=== PATIENT | male | born 1960 | race Caucasian/White ===

== ENCOUNTER 2021-01-25 06:42 | Emergency (ER) | payer BC, OTHER ==
[2021-01-25 08:11] LABS: #Basophils 0.1 10x3/uL (0.0-0.2); #Neutrophils 3.8 10x3/uL (1.5-8.4); %Basophils 0.9 % (0.0-2.0); %Eosinophils 0.6 % (0.0-6.0); %Lymphocytes 26.2 % (18.0-47.0); %Monocytes 15.4 % (0.0-10.0); %Neutrophils 56.5 % (40.0-75.0); Hemoglobin 16.3 g/dL (13.5-17.5); Mean Corpuscular HGB CONC 35.4 g/dL (32.0-36.0); Mean Corpuscular Hemoglobin 33.2 pg (27.0-33.0); Mean Corpuscular Volume 93.9 fl (81.2-95.1); Mean Platelet Volume 10.7 fl (7.4-10.4); Platelet Count 184 10x3/uL (150-450); RBC Distribution Width 12.7 % (11.5-14.5); Red Blood Cell (RBC) Count 4.91 10x6/uL (4.32-5.72); White Blood Cell (WBC) Count 6.8 10x3/uL (3.5-10.5)
[2021-01-25] MEDS ORDERED: Oxymetazoline HCl 0.05% ( 15 ML ) ONE (08:37)
== END 2021-01-25 09:03 | disposition home or self-care (01) ==
LOC: CSHERS 06:42
DX: R04.0 Epistaxis (principal); E78.5 Hyperlipidemia, unspecified; E78.00 Pure hypercholesterolemia, unspecified; I48.91 Unspecified atrial fibrillation; I10 Essential (primary) hypertension; Z79.01 Long term (current) use of anticoagulants
CPT/HCPCS: 85025; 93005; 93010; 99283

== ENCOUNTER 2021-01-26 10:40 | Observation (INO) | payer BC, OTHER ==
[2021-01-26] MEDS ORDERED: diphenhydrAMINE 50 MG/ML VIAL ONE (11:05)
[2021-01-26] MEDS ORDERED: Dexamethasone 10 MG/ML VIAL ONE (11:05)
[2021-01-26 11:16] LABS: #Monocytes 0.7 10x3/uL (0.0-1.1); #Neutrophils 3.4 10x3/uL (1.5-8.4); %Basophils 0.7 % (0.0-2.0); %Eosinophils 0.5 % (0.0-6.0); %Lymphocytes 25.8 % (18.0-47.0); %Monocytes 11.7 % (0.0-10.0); %Neutrophils 60.9 % (40.0-75.0); Hemoglobin 16.1 g/dL (13.5-17.5); Mean Corpuscular Hemoglobin 32.9 pg (27.0-33.0); Mean Corpuscular Volume 91.2 fl (81.2-95.1); Mean Platelet Volume 10.3 fl (7.4-10.4); Platelet Count 160 10x3/uL (150-450); RBC Distribution Width 12.7 % (11.5-14.5); White Blood Cell (WBC) Count 5.6 10x3/uL (3.5-10.5)
[2021-01-26 11:27] LABS: ALT (SGPT) 26 U/L (8-55); AST (SGOT) 25 U/L (5-34); Albumin 3.9 g/dL (3.4-4.8); Alkaline Phosphatase 65 U/L (40-110); Anion Gap 16 mmol/L (10-20); BUN (Urea Nitrogen) 15 mg/dL (8.4-25.7); Bilirubin, Total 1.2 mg/dL (0.2-1.2); Calc. Creatinine Clearance 0 mL/min (70-130); Calcium 9.6 mg/dL (7.8-10.44); Carbon Dioxide 14 mmol/L (23-31); Chloride 108 mmol/L (98-107); Globulin 3.5 g/dL (2.4-3.5); Glucose 200 mg/dL (80-115); Lipase 72 U/L (8-78); PTT 25.2 sec (22.0-33.0); Potassium 3.8 mmol/L (3.5-5.1); Protein, Total 7.4 g/dL (5.8-8.1); Prothrombin Time 11.4 sec (9.5-12.1); Sodium 134 mmol/L (136-145)
[2021-01-26] MEDS ORDERED: Multivitamins, Adult 10 ML, Thiamine HCl 100 MG, Folic Acid 1 MG in Dextrose 5 %-0.45 %... IV SCH (11:45)
[2021-01-26] MEDS ORDERED: Famotidine/PF 20 mg/2ml Vial ONE (11:56)
[2021-01-26] MEDS ORDERED: Ondansetron PF 4 MG/2 ML Vial IVP PRN (12:49)
[2021-01-26] MEDS ORDERED: Senokot S 8.6-50 MG TAB PO PRN (12:49)
[2021-01-26] MEDS ORDERED: Acetaminophen 650 MG Suppository PR PRN (12:49)
[2021-01-26] MEDS ORDERED: Acetaminophen 325 MG TAB PO PRN (12:49)
[2021-01-26] MEDS ORDERED: diphenhydrAMINE 50 MG/ML VIAL IVP PRN (12:51)
[2021-01-26 13:24] LABS: SARS-CoV-2 NAA Rapid Test Not Detected (NotDetected)
[2021-01-26] MEDS ORDERED: Dextrose 50% Abboject 50 ML SYRINGE SLOW IVP PRN (14:18)
[2021-01-26] MEDS ORDERED: Dextrose 5% in Water 1,000 ML IV PRN (14:18)
[2021-01-26] MEDS ORDERED: Ondansetron ODT 4 MG TAB PO PRN (17:26)
[2021-01-26] MEDS ORDERED: D5 1/2 NS w/20 mEq KCL 1,000 ML IV SCH (17:30)
[2021-01-26 17:32] VITALS: BMI 25.7
[2021-01-26] MEDS ORDERED: methylPREDNISolone Sod Succ 40 MG VIAL IVP SCH (18:00)
[2021-01-26] MEDS: HumaLOG 300 UNITS/3 ML VIAL SC PRN (18:05)
[2021-01-26] MEDS: methylPREDNISolone Sod Succ 40 MG VIAL IVP SCH (20:45)
[2021-01-26] MEDS: Famotidine/PF 20 mg/2ml Vial SLOW IVP SCH (20:45)
[2021-01-27] MEDS: HumaLOG 300 UNITS/3 ML VIAL SC PRN ×4 (00:21→16:05)
[2021-01-27 05:00] LABS: #Monocytes 0.3 10x3/uL (0.0-1.1); #Neutrophils 3.7 10x3/uL (1.5-8.4); %Lymphocytes 15.7 % (18.0-47.0); %Monocytes 5.9 % (0.0-10.0); %Neutrophils 77.8 % (40.0-75.0); Hemoglobin 14.2 g/dL (13.5-17.5); Mean Corpuscular HGB CONC 35.5 g/dL (32.0-36.0); Mean Corpuscular Hemoglobin 32.6 pg (27.0-33.0); Mean Platelet Volume 10.4 fl (7.4-10.4); Platelet Count 164 10x3/uL (150-450); RBC Distribution Width 12.4 % (11.5-14.5); Red Blood Cell (RBC) Count 4.35 10x6/uL (4.32-5.72); White Blood Cell (WBC) Count 4.8 10x3/uL (3.5-10.5)
[2021-01-27 05:12] LABS: ALT (SGPT) 21 U/L (8-55); AST (SGOT) 17 U/L (5-34); Albumin 3.6 g/dL (3.4-4.8); Alkaline Phosphatase 59 U/L (40-110); Anion Gap 13 mmol/L (10-20); BUN (Urea Nitrogen) 10 mg/dL (8.4-25.7); Bilirubin, Total 0.7 mg/dL (0.2-1.2); Calc. Creatinine Clearance 110 mL/min (70-130); Calcium 8.7 mg/dL (7.8-10.44); Carbon Dioxide 17 mmol/L (23-31); Chloride 108 mmol/L (98-107); Globulin 3.6 g/dL (2.4-3.5); Glucose 164 mg/dL (80-115); Potassium 3.4 mmol/L (3.5-5.1); Protein, Total 7.2 g/dL (5.8-8.1); Sodium 135 mmol/L (136-145)
[2021-01-27 08:05] VITALS: BP 155/108; TEMP 98
[2021-01-27] MEDS: Famotidine/PF 20 mg/2ml Vial SLOW IVP SCH (08:24)
[2021-01-27] MEDS: methylPREDNISolone Sod Succ 40 MG VIAL IVP SCH ×2 (08:24→13:56)
[2021-01-27] MEDS ORDERED: Labetalol HCl 100 MG/20 ML VIAL SLOW IVP PRN (08:30)
[2021-01-27] MEDS ORDERED: Potassium Chloride 20 MEQ TAB PO SCH (08:30)
[2021-01-27] MEDS ORDERED: Amlodipine 5 MG TAB PO SCH (09:00)
[2021-01-27] MEDS ORDERED: Metoprolol Tartrate 50 MG TAB PO SCH (09:00)
[2021-01-27 11:27] LABS: Hemoglobin A1c 5.7 % (4.0-6.0)
[2021-01-27] MEDS ORDERED: Labetalol HCl 100 MG/20 ML VIAL SLOW IVP SCH (15:00)
== END 2021-01-27 17:15 | disposition home or self-care (01) ==
LOC: CSHERS 10:40 → SUATTDRO 10:40 → INTOOBSV 16:25 → CSHICU 16:25
PROVIDERS: ADMIT Internal Medicine; ATTEND Internal Medicine
DX: T78.3XXA Angioneurotic edema, initial encounter (principal); I48.0 Paroxysmal atrial fibrillation; R04.0 Epistaxis; I10 Essential (primary) hypertension; R73.9 Hyperglycemia, unspecified; E78.5 Hyperlipidemia, unspecified; H91.90 Unspecified hearing loss, unspecified ear; F10.10 Alcohol abuse, uncomplicated; E78.00 Pure hypercholesterolemia, unspecified; Z79.01 Long term (current) use of anticoagulants; Z79.899 Other long term (current) drug therapy; Z20.822 Contact with and (suspected) exposure to COVID-19
CPT/HCPCS: 36416; 36430; 71045; 80053; 83036; 83690; 83880; 84484; 85025; 85610; 85730; 86850; 86900; 86901; 96365; 96374; 96375; 96376; G0378; J1100; J1200; J1815; J2920; J3411; J3480; J7042; P9059; S0028; U0002

== ENCOUNTER 2022-10-31 03:58 | Emergency (ER) | payer BC, OTHER | END 2022-10-31 07:30 | disposition home or self-care (01) | LOC: CSHERS 03:58 | DX: R04.0 Epistaxis (principal); I48.91 Unspecified atrial fibrillation; E78.00 Pure hypercholesterolemia, unspecified; I10 Essential (primary) hypertension; Z79.899 Other long term (current) drug therapy | CPT/HCPCS: 30901 ==

== ENCOUNTER 2023-04-15 18:34 | Inpatient (IN) | payer BC, OTHER ==
[~2023-04-15 18:34] MED LIST: Magnevist 469MG/ML 20 ML VIAL ONE
[2023-04-15] MEDS ORDERED: Calcium Carbonate 500 MG ChewTAB PO PRN (19:25)
[2023-04-15] MEDS ORDERED: Ondansetron PF 4 MG/2 ML Vial IVP PRN (19:25)
[2023-04-15] MEDS ORDERED: Senokot S 8.6-50 MG TAB PO PRN (19:25)
[2023-04-15] MEDS ORDERED: Guaifenesin DM 100-10/5 ML UDCUP PO PRN (19:25)
[2023-04-15] MEDS ORDERED: Acetaminophen 325 MG TAB PO PRN (19:25)
[2023-04-15 20:09] VITALS: BMI 27.3
[2023-04-15] MEDS ORDERED: Sodium Chloride 0.9% 1,000 ML IV SCH (20:45)
[2023-04-15] MEDS: HYDROcodone/Acetaminophen 5/325 mg Tablet PO PRN (22:12)
[2023-04-15] MEDS: Metoprolol Tartrate 50 MG TAB PO SCH (22:14)
[2023-04-15] MEDS: Cefepime 1 GM in Sodium Chloride 0.9% 100 ML IVPB SCH (23:17)
[2023-04-16 04:51] LABS: #Eosinphils 0.2 10x3/uL (0.0-0.5); #Monocytes 0.7 10x3/uL (0.0-1.1); #Neutrophils 3.8 10x3/uL (1.5-8.4); %Basophils 0.7 % (0.0-2.0); %Eosinophils 2.6 % (0.0-6.0); %Lymphocytes 16.7 % (18.0-47.0); %Monocytes 12.9 % (0.0-10.0); %Neutrophils 66.7 % (40.0-75.0); Mean Corpuscular HGB CONC 35.2 g/dL (32.0-36.0); Mean Corpuscular Hemoglobin 32.9 pg (27.0-33.0); Mean Corpuscular Volume 93.4 fl (81.2-95.1); Mean Platelet Volume 9.5 fl (7.4-10.4); Platelet Count 236 10x3/uL (150-450); RBC Distribution Width 12.7 % (11.5-14.5); Red Blood Cell (RBC) Count 3.65 10x6/uL (4.32-5.72); White Blood Cell (WBC) Count 5.7 10x3/uL (3.5-10.5)
[2023-04-16] MEDS: HYDROcodone/Acetaminophen 5/325 mg Tablet PO PRN ×4 (04:56→22:07)
[2023-04-16] MEDS: Vancomycin 1.5 GRAM/300 ML BAG 1.5 GM in Premix Bag 1 BAG IVPB SCH ×2 (04:59→17:35)
[2023-04-16 05:04] LABS: Anion Gap 13 mmol/L (10-20); BUN (Urea Nitrogen) 6 mg/dL (8.4-25.7); Calc. Creatinine Clearance 142 mL/min (70-130); Calcium 8.6 mg/dL (7.8-10.44); Carbon Dioxide 19 mmol/L (23-31); Chloride 104 mmol/L (98-107); Estimated GFR 105; Glucose 102 mg/dL (80-115); Potassium 3.4 mmol/L (3.5-5.1); Sodium 133 mmol/L (136-145)
[2023-04-16] MEDS: Cefepime 1 GM in Sodium Chloride 0.9% 100 ML IVPB SCH (08:50)
[2023-04-16] MEDS: Aspirin 81 mg Enteric Coated Tablet PO SCH (08:51)
[2023-04-16] MEDS: Metoprolol Tartrate 50 MG TAB PO SCH ×2 (08:51→21:53)
[2023-04-16] MEDS: Potassium Chloride 20 MEQ TAB PO SCH (08:51)
[2023-04-16] MEDS: dilTIAZem CD 180 MG CAP PO SCH (08:51)
[2023-04-16] MEDS: Fenofibrate Nanocrystallized 145 MG TAB PO SCH (08:52)
[2023-04-16] MEDS ORDERED: Thiamine 100 MG TAB PO SCH (09:00)
[2023-04-16] MEDS ORDERED: Folic Acid 1 MG TAB PO SCH (09:00)
[2023-04-16] MEDS ORDERED: Multivitamin W/ Minerals 1 TAB PO SCH (09:00)
[2023-04-16] MEDS ORDERED: Potassium Chloride 20 MEQ TAB PO SCH (09:30)
[2023-04-16] MEDS ORDERED: Piperacillin/Tazobactam 3.375 GM in Sodium Chloride 0.9% 100 ML IVPB SCH (10:00)
[2023-04-16 12:23] LABS: Hemoglobin A1c 5.2 % (4.0-6.0)
[2023-04-16] MEDS: Piperacillin/Tazobactam 3.375 GM in Sodium Chloride 0.9% 100 ML IVPB SCH ×2 (14:09→21:54)
[2023-04-17] MEDS ORDERED: Lorazepam 1 MG TAB PO PRN
[2023-04-17] MEDS ORDERED: Ondansetron ODT 4 MG TAB PO PRN (02:45)
[2023-04-17] MEDS ORDERED: Electrolyte Replacement Protocol FS PRN (02:45)
[2023-04-17] MEDS ORDERED: Lorazepam 2 MG/ML VIAL IM PRN (02:45)
[2023-04-17] MEDS ORDERED: Lorazepam 1 MG TAB PO SCH (02:45)
[2023-04-17] MEDS: HYDROcodone/Acetaminophen 5/325 mg Tablet PO PRN (03:19)
[2023-04-17] MEDS: Metoprolol Tartrate 50 MG TAB PO SCH ×2 (05:34→22:21)
[2023-04-17] MEDS: Lorazepam 1 MG TAB PO SCH ×4 (05:35→22:22)
[2023-04-17] MEDS: dilTIAZem CD 180 MG CAP PO SCH (05:35)
[2023-04-17] MEDS: Piperacillin/Tazobactam 3.375 GM in Sodium Chloride 0.9% 100 ML IVPB SCH ×5 (05:37→22:21)
[2023-04-17] MEDS: Vancomycin 1.5 GRAM/300 ML BAG 1.5 GM in Premix Bag 1 BAG IVPB SCH ×2 (05:39→17:25)
[2023-04-17 05:54] LABS: Vancomycin, Trough 11.9 ug/mL
[2023-04-17] MEDS ORDERED: Neomycin-Polymyxin 1 ML AMP ONE (07:37)
[2023-04-17] MEDS ORDERED: Bupivacaine 0.25% HCL 30 ML VIAL ONE (07:37)
[2023-04-17] MEDS ORDERED: fentaNYL 50 mcg/mL 1 mL Vial ONE (07:46)
[2023-04-17] MEDS ORDERED: PROPOFOL 40 ML ONE (07:46)
[2023-04-17] MEDS ORDERED: Potassium Chloride 20 MEQ TAB PO SCH (08:00)
[2023-04-17] MEDS ORDERED: Dexmedetomidine 200 MCG/2 ML VIAL ONE (08:01)
[2023-04-17] MEDS ORDERED: Bupivacaine PF 0.5% 30 ML VIAL ONE (08:08)
[2023-04-17] MEDS ORDERED: Ondansetron PF 4 MG/2 ML Vial ONE (08:38)
[2023-04-17] MEDS: Losartan Potassium 50 MG TAB PO SCH (09:32)
[2023-04-17] MEDS: Folic Acid 1 MG TAB PO SCH (09:32)
[2023-04-17] MEDS: Aspirin 81 mg Enteric Coated Tablet PO SCH (09:32)
[2023-04-17] MEDS: Thiamine HCl 200 MG/2 ML VIAL SLOW IVP SCH (09:32)
[2023-04-17] MEDS: Multivit, Therapeutic 1 TAB PO SCH (09:32)
[2023-04-17] MEDS: Fenofibrate Nanocrystallized 145 MG TAB PO SCH (09:36)
[2023-04-18] MEDS: HYDROcodone/Acetaminophen 5/325 mg Tablet PO PRN ×2 (02:31→08:18)
[2023-04-18] MEDS ORDERED: Lorazepam 1 MG TAB PO PRN (02:45)
[2023-04-18 04:31] LABS: Anion Gap 14 mmol/L (10-20); BUN (Urea Nitrogen) 6 mg/dL (8.4-25.7); Calc. Creatinine Clearance 130 mL/min (70-130); Calcium 9.2 mg/dL (7.8-10.44); Carbon Dioxide 19 mmol/L (23-31); Chloride 105 mmol/L (98-107); Estimated GFR 102; Glucose 113 mg/dL (80-115); Potassium 4.1 mmol/L (3.5-5.1); Sodium 134 mmol/L (136-145)
[2023-04-18] MEDS: Lorazepam 1 MG TAB PO SCH ×4 (04:39→23:09)
[2023-04-18] MEDS: Vancomycin 1.5 GRAM/300 ML BAG 1.5 GM in Premix Bag 1 BAG IVPB SCH ×2 (04:39→17:50)
[2023-04-18 04:41] LABS: #Basophils 0.1 10x3/uL (0.0-0.2); #Eosinphils 0.2 10x3/uL (0.0-0.5); #Monocytes 0.6 10x3/uL (0.0-1.1); #Neutrophils 3.9 10x3/uL (1.5-8.4); %Basophils 0.8 % (0.0-2.0); %Eosinophils 2.9 % (0.0-6.0); %Monocytes 10.3 % (0.0-10.0); %Neutrophils 66.5 % (40.0-75.0); Hemoglobin 12.6 g/dL (13.5-17.5); Mean Corpuscular HGB CONC 35.1 g/dL (32.0-36.0); Mean Corpuscular Hemoglobin 33.2 pg (27.0-33.0); Mean Corpuscular Volume 94.5 fl (81.2-95.1); Mean Platelet Volume 9.7 fl (7.4-10.4); Platelet Count 287 10x3/uL (150-450); RBC Distribution Width 12.4 % (11.5-14.5); White Blood Cell (WBC) Count 5.9 10x3/uL (3.5-10.5)
[2023-04-18] MEDS: Piperacillin/Tazobactam 3.375 GM in Sodium Chloride 0.9% 100 ML IVPB SCH ×3 (06:05→21:33)
[2023-04-18] MEDS: Multivit, Therapeutic 1 TAB PO SCH (08:18)
[2023-04-18] MEDS: dilTIAZem CD 180 MG CAP PO SCH (08:18)
[2023-04-18] MEDS: Thiamine HCl 200 MG/2 ML VIAL SLOW IVP SCH (08:18)
[2023-04-18] MEDS: Metoprolol Tartrate 50 MG TAB PO SCH ×2 (08:18→21:33)
[2023-04-18] MEDS: Aspirin 81 mg Enteric Coated Tablet PO SCH (08:19)
[2023-04-18] MEDS: Folic Acid 1 MG TAB PO SCH (08:19)
[2023-04-18] MEDS: Losartan Potassium 50 MG TAB PO SCH ×2 (08:19→21:33)
[2023-04-18] MEDS: Fenofibrate Nanocrystallized 145 MG TAB PO SCH (08:20)
[2023-04-19] MEDS: HYDROcodone/Acetaminophen 5/325 mg Tablet PO PRN ×2 (01:30→08:12)
[2023-04-19] MEDS ORDERED: Lorazepam 1 MG TAB PO PRN (02:45)
[2023-04-19] MEDS: Vancomycin 1.5 GRAM/300 ML BAG 1.5 GM in Premix Bag 1 BAG IVPB SCH (05:13)
[2023-04-19] MEDS: Lorazepam 0.5 MG TAB PO SCH ×4 (05:13→22:19)
[2023-04-19 05:18] LABS: #Basophils 0.1 10x3/uL (0.0-0.2); #Eosinphils 0.2 10x3/uL (0.0-0.5); #Monocytes 0.6 10x3/uL (0.0-1.1); #Neutrophils 2.5 10x3/uL (1.5-8.4); %Basophils 1.5 % (0.0-2.0); %Eosinophils 4.3 % (0.0-6.0); %Lymphocytes 27.2 % (18.0-47.0); %Monocytes 12.7 % (0.0-10.0); %Neutrophils 53.4 % (40.0-75.0); Mean Corpuscular HGB CONC 34.2 g/dL (32.0-36.0); Mean Corpuscular Volume 96.4 fl (81.2-95.1); Mean Platelet Volume 9.5 fl (7.4-10.4); Platelet Count 291 10x3/uL (150-450); RBC Distribution Width 12.6 % (11.5-14.5); Red Blood Cell (RBC) Count 3.94 10x6/uL (4.32-5.72); White Blood Cell (WBC) Count 4.6 10x3/uL (3.5-10.5)
[2023-04-19 05:24] LABS: Anion Gap 14 mmol/L (10-20); BUN (Urea Nitrogen) 8 mg/dL (8.4-25.7); Calc. Creatinine Clearance 116 mL/min (70-130); Calcium 9.5 mg/dL (7.8-10.44); Carbon Dioxide 22 mmol/L (23-31); Chloride 105 mmol/L (98-107); Estimated GFR 98; Glucose 111 mg/dL (80-115); Potassium 4.5 mmol/L (3.5-5.1); Sodium 136 mmol/L (136-145)
[2023-04-19 05:38] LABS: Vancomycin, Trough 17.4 ug/mL
[2023-04-19] MEDS: Piperacillin/Tazobactam 3.375 GM in Sodium Chloride 0.9% 100 ML IVPB SCH (05:44)
[2023-04-19] MEDS: Metoprolol Tartrate 50 MG TAB PO SCH ×2 (08:12→22:18)
[2023-04-19] MEDS: Losartan Potassium 50 MG TAB PO SCH ×2 (08:12→22:18)
[2023-04-19] MEDS: Folic Acid 1 MG TAB PO SCH (08:12)
[2023-04-19] MEDS: Multivit, Therapeutic 1 TAB PO SCH (08:12)
[2023-04-19] MEDS: Thiamine HCl 200 MG/2 ML VIAL SLOW IVP SCH (08:12)
[2023-04-19] MEDS: Aspirin 81 mg Enteric Coated Tablet PO SCH (08:12)
[2023-04-19] MEDS: dilTIAZem CD 180 MG CAP PO SCH (08:13)
[2023-04-19] MEDS: Fenofibrate Nanocrystallized 145 MG TAB PO SCH (08:14)
[2023-04-19] MEDS ORDERED: LevoFLOXacin 750 MG TAB PO SCH (12:00)
[2023-04-19] MEDS ORDERED: Hydrochlorothiazide 25 MG TAB PO SCH (12:00)
[2023-04-19] MEDS ORDERED: Doxycycline 100 MG CAP PO SCH (12:30)
[2023-04-19] MEDS ORDERED: VANCOMYCIN 1.25 GM/250 ML BAG 1.25 GM in Premix Bag 1 BAG IVPB SCH (18:00)
[2023-04-19] MEDS: Doxycycline 100 MG CAP PO SCH (22:18)
[2023-04-19] MEDS: Amoxicillin/Potassium Clav 875 MG TAB PO SCH (22:18)
[2023-04-19] MEDS: Apixaban 5 MG TAB PO SCH (22:19)
[2023-04-20 04:57] LABS: Anion Gap 16 mmol/L (10-20); BUN (Urea Nitrogen) 11 mg/dL (8.4-25.7); Calc. Creatinine Clearance 112 mL/min (70-130); Carbon Dioxide 21 mmol/L (23-31); Chloride 103 mmol/L (98-107); Estimated GFR 97; Glucose 123 mg/dL (80-115); Potassium 4.3 mmol/L (3.5-5.1); Sodium 136 mmol/L (136-145)
[2023-04-20 05:06] LABS: #Basophils 0.1 10x3/uL (0.0-0.2); #Eosinphils 0.2 10x3/uL (0.0-0.5); #Monocytes 0.8 10x3/uL (0.0-1.1); #Neutrophils 3.1 10x3/uL (1.5-8.4); %Basophils 1.1 % (0.0-2.0); %Eosinophils 2.6 % (0.0-6.0); %Lymphocytes 26.8 % (18.0-47.0); %Monocytes 14.3 % (0.0-10.0); Hemoglobin 13.9 g/dL (13.5-17.5); Mean Corpuscular HGB CONC 34.8 g/dL (32.0-36.0); Mean Corpuscular Hemoglobin 32.9 pg (27.0-33.0); Mean Corpuscular Volume 94.3 fl (81.2-95.1); Mean Platelet Volume 9.6 fl (7.4-10.4); Platelet Count 331 10x3/uL (150-450); RBC Distribution Width 12.5 % (11.5-14.5); Red Blood Cell (RBC) Count 4.23 10x6/uL (4.32-5.72); White Blood Cell (WBC) Count 5.7 10x3/uL (3.5-10.5)
[2023-04-20] MEDS ORDERED: LevoFLOXacin 750 MG TAB PO SCH (06:00)
[2023-04-20] MEDS ORDERED: Lorazepam 0.5 MG TAB PO PRN (06:00)
[2023-04-20] MEDS ORDERED: Thiamine 100 MG TAB PO SCH (09:00)
[2023-04-20] MEDS ORDERED: dilTIAZem CD 240 MG CAP PO SCH (09:00)
[2023-04-20] MEDS ORDERED: Hydrochlorothiazide 25 MG TAB PO SCH (09:00)
[2023-04-20] MEDS: Aspirin 81 mg Enteric Coated Tablet PO SCH (09:27)
[2023-04-20] MEDS: Metoprolol Tartrate 50 MG TAB PO SCH (09:27)
[2023-04-20] MEDS: Fenofibrate Nanocrystallized 145 MG TAB PO SCH (09:27)
[2023-04-20] MEDS: Losartan Potassium 50 MG TAB PO SCH (09:28)
[2023-04-20] MEDS: Apixaban 5 MG TAB PO SCH (09:28)
[2023-04-20] MEDS: Folic Acid 1 MG TAB PO SCH (09:28)
[2023-04-20] MEDS: Multivit, Therapeutic 1 TAB PO SCH (09:29)
[2023-04-20] MEDS: Amoxicillin/Potassium Clav 875 MG TAB PO SCH (09:34)
[2023-04-20] MEDS: Doxycycline 100 MG CAP PO SCH (09:43)
[2023-04-20 16:20] VITALS: BP 165/93; TEMP 98
== END 2023-04-20 16:49 | disposition home or self-care (01) | DRG 623 ==
LOC: CSHTELE 18:34
PROVIDERS: ADMIT Student in an Organized Health Care Education/Training Program; ATTEND Family Medicine
PROC: 0LBV0ZZ Excision of Right Foot Tendon, Open Approach (ICD-10-PCS; principal; 2023-04-17)
PROC: 0J9Q0ZZ Drainage of Right Foot Subcutaneous Tissue and Fascia, Open Approach (ICD-10-PCS; 2023-04-17)
DX: E11.628 Type 2 diabetes mellitus with other skin complications (principal); E87.1 Hypo-osmolality and hyponatremia; L03.115 Cellulitis of right lower limb; L97.412 Non-pressure chronic ulcer of right heel and midfoot with fat layer exposed; L02.611 Cutaneous abscess of right foot; E86.0 Dehydration; F10.10 Alcohol abuse, uncomplicated; E78.5 Hyperlipidemia, unspecified; I10 Essential (primary) hypertension; E11.9 Type 2 diabetes mellitus without complications; I48.0 Paroxysmal atrial fibrillation; Z79.899 Other long term (current) drug therapy; Z79.01 Long term (current) use of anticoagulants; Z98.890 Other specified postprocedural states; Z82.49 Family history of ischemic heart disease and other diseases of the circulatory system; Z79.82 Long term (current) use of aspirin; Z79.2 Long term (current) use of antibiotics; G62.9 Polyneuropathy, unspecified; E11.621 Type 2 diabetes mellitus with foot ulcer; F17.210 Nicotine dependence, cigarettes, uncomplicated
CPT/HCPCS: 36415; 80048; 80053; 80202; 83036; 83605; 85025; 85652; 86140; 87040; 87070; 87076; 87077; 87186; 87205; 93923; 96365; 96375; 97139; A9579; J0692; J1650; J2060; J2405; J2543; J2704; J3010; J3370; J3370-JW; J3411; J3490; J7050; S0020

== ENCOUNTER 2023-04-21 13:12 | Outpatient (CLI) | payer BC, OTHER | END 2023-04-21 13:13 | disposition home or self-care (01) | LOC: CSHWCC 13:12 | PROVIDERS: ATTEND Nurse Practitioner Family | DX: S91.309D Unspecified open wound, unspecified foot, subsequent encounter (principal) | CPT/HCPCS: 99203; G0463 ==

== ENCOUNTER 2023-04-25 15:28 | Outpatient (CLI) | payer BC, OTHER | END 2023-04-25 15:29 | disposition home or self-care (01) | LOC: CSHWCC 15:28 | PROVIDERS: ATTEND Nurse Practitioner Family | DX: S91.309D Unspecified open wound, unspecified foot, subsequent encounter (principal) | CPT/HCPCS: 97597 ==

== ENCOUNTER 2023-04-28 15:20 | Outpatient (CLI) | payer BC, OTHER | END 2023-04-28 15:21 | disposition home or self-care (01) | LOC: CSHWCC 15:20 | PROVIDERS: ATTEND Nurse Practitioner Family | DX: S91.301D Unspecified open wound, right foot, subsequent encounter (principal) | CPT/HCPCS: 99213; G0463 ==

== ENCOUNTER 2023-05-02 12:54 | Outpatient (CLI) | payer BC, OTHER | END 2023-05-02 12:55 | disposition home or self-care (01) | LOC: CSHWCC 12:54 | PROVIDERS: ATTEND Nurse Practitioner Family | DX: S91.309D Unspecified open wound, unspecified foot, subsequent encounter (principal) | CPT/HCPCS: 99211; G0463 ==

== ENCOUNTER 2023-05-05 15:22 | Outpatient (CLI) | payer BC, OTHER | END 2023-05-05 15:23 | disposition home or self-care (01) | LOC: CSHWCC 15:22 | PROVIDERS: ATTEND Nurse Practitioner Family | DX: S91.301D Unspecified open wound, right foot, subsequent encounter (principal) | CPT/HCPCS: 99213; G0463 ==

== ENCOUNTER 2023-05-16 10:23 | Outpatient (CLI) | payer BC, OTHER | END 2023-05-16 10:24 | disposition home or self-care (01) | LOC: CSHWCC 10:23 | PROVIDERS: ATTEND Nurse Practitioner Family | DX: S91.309D Unspecified open wound, unspecified foot, subsequent encounter (principal) | CPT/HCPCS: 99213; G0463 ==

== ENCOUNTER 2023-06-01 11:06 | Outpatient (CLI) | payer BC, OTHER | END 2023-06-01 11:07 | disposition home or self-care (01) | LOC: CSHWCC 11:06 | PROVIDERS: ATTEND Nurse Practitioner Family | DX: S91.309D Unspecified open wound, unspecified foot, subsequent encounter (principal) | CPT/HCPCS: 11042; 11045 ==

== ENCOUNTER 2023-08-10 10:37 | Inpatient (IN) | payer OTHER, MEDICARE, BC ==
[2023-08-10 12:04] LABS: #Eosinphils 0.1 10x3/uL (0.0-0.5); #Monocytes 0.7 10x3/uL (0.0-1.1); %Basophils 0.5 % (0.0-2.0); %Eosinophils 1.3 % (0.0-6.0); %Lymphocytes 22.2 % (18.0-47.0); %Monocytes 9.6 % (0.0-10.0); Hematocrit 39.4 % (38.8-50.0); Hemoglobin 13.7 g/dL (13.5-17.5); Mean Corpuscular HGB CONC 34.8 g/dL (32.0-36.0); Mean Corpuscular Hemoglobin 29.5 pg (27.0-33.0); Mean Corpuscular Volume 84.7 fl (81.2-95.1); Mean Platelet Volume 10.4 fl (7.4-10.4); Platelet Count 301 10x3/uL (150-450); Red Blood Cell (RBC) Count 4.65 10x6/uL (4.32-5.72); White Blood Cell (WBC) Count 7.6 10x3/uL (3.5-10.5)
[2023-08-10] MEDS ORDERED: LevoFLOXacin 750 mg/D5W 150 ml Premix Bag ONE (12:09)
[2023-08-10 12:34] LABS: ALT (SGPT) 16 U/L (8-55); AST (SGOT) 18 U/L (5-34); Albumin 4.4 g/dL (3.4-4.8); Alkaline Phosphatase 58 U/L (40-110); Anion Gap 11 mmol/L (10-20); BUN (Urea Nitrogen) 18 mg/dL (8.4-25.7); Bilirubin, Total 0.4 mg/dL (0.2-1.2); Calc. Creatinine Clearance 0 mL/min (70-130); Calcium 9.7 mg/dL (7.8-10.44); Carbon Dioxide 25 mmol/L (23-31); Chloride 104 mmol/L (98-107); Estimated GFR 66; Globulin 3.8 g/dL (2.4-3.5); Glucose 144 mg/dL (80-115); Potassium 4.4 mmol/L (3.5-5.1); Protein, Total 8.2 g/dL (5.8-8.1); Sodium 136 mmol/L (136-145)
[2023-08-10] MEDS ORDERED: VANCOMYCIN 1.75 GM/350 ML BAG 1.75 GM in Premix 1 BAG IVPB SCH (13:00)
[2023-08-10 15:09] VITALS: BMI 27.4
[2023-08-10] MEDS ORDERED: Senokot S 8.6-50 MG TAB PO PRN (15:34)
[2023-08-10] MEDS ORDERED: Acetaminophen 325 MG TAB PO PRN (15:34)
[2023-08-10] MEDS ORDERED: Ondansetron ODT 4 MG TAB PO PRN (15:34)
[2023-08-10] MEDS ORDERED: Acetaminophen 650 MG Suppository PR PRN (15:34)
[2023-08-10] MEDS ORDERED: Ondansetron PF 4 MG/2 ML Vial IVP PRN (15:34)
[2023-08-10] MEDS ORDERED: Piperacillin/Tazobactam 3.375 GM in Sodium Chloride 0.9% 100 ML IVPB SCH (18:00)
[2023-08-10] MEDS: Piperacillin/Tazobactam 3.375 GM in Sodium Chloride 0.9% 100 ML IVPB SCH (22:58)
[2023-08-11] MEDS: Vancomycin 1 GM in Sodium Chloride 0.9% 250 ML 250 ML IVPB SCH ×2 (03:19→16:46)
[2023-08-11 05:23] LABS: #Eosinphils 0.1 10x3/uL (0.0-0.5); #Monocytes 0.8 10x3/uL (0.0-1.1); #Neutrophils 6.2 10x3/uL (1.5-8.4); %Basophils 0.5 % (0.0-2.0); %Eosinophils 1.4 % (0.0-6.0); %Lymphocytes 18.3 % (18.0-47.0); %Monocytes 8.7 % (0.0-10.0); %Neutrophils 70.6 % (40.0-75.0); Hematocrit 35.5 % (38.8-50.0); Hemoglobin 12.6 g/dL (13.5-17.5); Mean Corpuscular HGB CONC 35.5 g/dL (32.0-36.0); Mean Corpuscular Hemoglobin 29.9 pg (27.0-33.0); Mean Corpuscular Volume 84.1 fl (81.2-95.1); Mean Platelet Volume 10.6 fl (7.4-10.4); Platelet Count 250 10x3/uL (150-450); RBC Distribution Width 12.9 % (11.5-14.5); Red Blood Cell (RBC) Count 4.22 10x6/uL (4.32-5.72); White Blood Cell (WBC) Count 8.8 10x3/uL (3.5-10.5)
[2023-08-11 05:28] LABS: Anion Gap 12 mmol/L (10-20); BUN (Urea Nitrogen) 14 mg/dL (8.4-25.7); Calc. Creatinine Clearance 100 mL/min (70-130); Calcium 8.8 mg/dL (7.8-10.44); Carbon Dioxide 19 mmol/L (23-31); Chloride 108 mmol/L (98-107); Estimated GFR 91; Glucose 136 mg/dL (80-115); Potassium 3.9 mmol/L (3.5-5.1); Sodium 135 mmol/L (136-145)
[2023-08-11] MEDS: Piperacillin/Tazobactam 3.375 GM in Sodium Chloride 0.9% 100 ML IVPB SCH ×3 (05:49→21:02)
[2023-08-11] MEDS ORDERED: Lorazepam 2 MG/ML VIAL IM PRN (11:20)
[2023-08-11] MEDS ORDERED: Lorazepam 1 MG TAB PO PRN (11:20)
[2023-08-11] MEDS ORDERED: Thiamine HCl 200 MG/2 ML VIAL SLOW IVP SCH (11:30)
[2023-08-11] MEDS ORDERED: Folic Acid 1 MG TAB PO SCH (12:00)
[2023-08-12 02:46] LABS: Hematocrit 36.5 % (38.8-50.0); Hemoglobin 12.9 g/dL (13.5-17.5); Mean Corpuscular HGB CONC 35.3 g/dL (32.0-36.0); Mean Corpuscular Hemoglobin 29.5 pg (27.0-33.0); Mean Corpuscular Volume 83.5 fl (81.2-95.1); Mean Platelet Volume 10.5 fl (7.4-10.4); Platelet Count 260 10x3/uL (150-450); RBC Distribution Width 12.7 % (11.5-14.5); Red Blood Cell (RBC) Count 4.37 10x6/uL (4.32-5.72); White Blood Cell (WBC) Count 12.1 10x3/uL (3.5-10.5)
[2023-08-12 02:47] LABS: INR-International Normal Ratio 1.1; Prothrombin Time 11.3 sec (9.5-12.1)
[2023-08-12 02:52] LABS: Vancomycin, Trough 13.6 ug/mL
[2023-08-12 03:16] LABS: Anion Gap 12 mmol/L (10-20); BUN (Urea Nitrogen) 11 mg/dL (8.4-25.7); Calc. Creatinine Clearance 106 mL/min (70-130); Calcium 8.9 mg/dL (7.8-10.44); Carbon Dioxide 19 mmol/L (23-31); Estimated GFR 95; Glucose 148 mg/dL (80-115); Potassium 3.8 mmol/L (3.5-5.1); Sodium 137 mmol/L (136-145)
[2023-08-12 03:46] LABS: Chloride 110 mmol/L (98-107)
[2023-08-12] MEDS: Vancomycin 1 GM in Sodium Chloride 0.9% 250 ML 250 ML IVPB SCH ×2 (03:56→16:35)
[2023-08-12] MEDS: Piperacillin/Tazobactam 3.375 GM in Sodium Chloride 0.9% 100 ML IVPB SCH ×3 (06:06→21:32)
[2023-08-12] MEDS: Losartan 50 MG TAB PO SCH (08:25)
[2023-08-12] MEDS: Fenofibrate Nanocrystallized 145 MG TAB PO SCH (08:26)
[2023-08-12] MEDS ORDERED: Folic Acid 1 MG TAB PO SCH (09:00)
[2023-08-12] MEDS ORDERED: Multivit, Therapeutic 1 TAB PO SCH (09:00)
[2023-08-12] MEDS ORDERED: Lorazepam 1 MG TAB PO PRN (11:20)
[2023-08-12 16:14] LABS: Bilirubin Neg (Negative); Blood, Urine 25 (Negative); Clarity Clear (Clear); Glucose, Urine (Dipstick) 50 mg/dL (Negative); Ketone, Urine Negative (Negative); Leukocyte Negative (Negative); Nitrite Negative (Negative); Protein, Urine (Dipstick) 30 mg/dl (Neg-Trace); Specific Gravity, Urine 1.015 (1.005-1.030); Urobilinogen Normal mg/dL (Less than 2)
[2023-08-12 16:35] LABS: CAUTI Indications for Culture Acute Hematuria; WBC/HPF 0-3 HPF (0-3)
[2023-08-12 16:36] LABS: Bacteria/HPF 1+ HPF (None Seen); Calcium Oxalate Crystals Rare HPF (None Seen); Squamous Epithelial 0-3 HPF (0-3)
[2023-08-12 16:38] LABS: Urine Culture Reflex No No
[2023-08-12] MEDS: Metoprolol Tartrate 50 MG TAB PO SCH (21:32)
[2023-08-12] MEDS: Apixaban 5 MG TAB PO SCH (21:32)
[2023-08-13] MEDS: Piperacillin/Tazobactam 3.375 GM in Sodium Chloride 0.9% 100 ML IVPB SCH ×4 (06:11→21:10)
[2023-08-13 07:23] LABS: #Eosinphils 0.3 10x3/uL (0.0-0.5); #Monocytes 0.9 10x3/uL (0.0-1.1); #Neutrophils 5.9 10x3/uL (1.5-8.4); %Basophils 0.4 % (0.0-2.0); %Eosinophils 3.7 % (0.0-6.0); %Lymphocytes 19.9 % (18.0-47.0); %Monocytes 9.7 % (0.0-10.0); %Neutrophils 65.9 % (40.0-75.0); Hematocrit 31.7 % (38.8-50.0); Hemoglobin 11.1 g/dL (13.5-17.5); Mean Corpuscular Hemoglobin 29.4 pg (27.0-33.0); Mean Corpuscular Volume 84.1 fl (81.2-95.1); Mean Platelet Volume 10.7 fl (7.4-10.4); Platelet Count 231 10x3/uL (150-450); RBC Distribution Width 12.9 % (11.5-14.5); Red Blood Cell (RBC) Count 3.77 10x6/uL (4.32-5.72)
[2023-08-13 07:48] LABS: Anion Gap 11 mmol/L (10-20); BUN (Urea Nitrogen) 10 mg/dL (8.4-25.7); Calc. Creatinine Clearance 92 mL/min (70-130); Calcium 8.8 mg/dL (7.8-10.44); Carbon Dioxide 21 mmol/L (23-31); Chloride 108 mmol/L (98-107); Estimated GFR 83; Glucose 126 mg/dL (80-115); Potassium 3.7 mmol/L (3.5-5.1); Sodium 136 mmol/L (136-145)
[2023-08-13] MEDS: Apixaban 5 MG TAB PO SCH ×2 (08:20→21:07)
[2023-08-13] MEDS: Losartan 50 MG TAB PO SCH (08:20)
[2023-08-13] MEDS: Fenofibrate Nanocrystallized 145 MG TAB PO SCH (08:21)
[2023-08-13] MEDS: Metoprolol Tartrate 50 MG TAB PO SCH ×2 (08:21→21:07)
[2023-08-13] MEDS ORDERED: dilTIAZem CD 180 MG CAP PO SCH (09:00)
[2023-08-13] MEDS ORDERED: Lorazepam 1 MG TAB PO PRN (11:20)
[2023-08-14 04:56] LABS: Anion Gap 13 mmol/L (10-20); BUN (Urea Nitrogen) 12 mg/dL (8.4-25.7); Calc. Creatinine Clearance 97 mL/min (70-130); Calcium 9.4 mg/dL (7.8-10.44); Carbon Dioxide 23 mmol/L (23-31); Chloride 109 mmol/L (98-107); Estimated GFR 88; Glucose 128 mg/dL (80-115); Magnesium 2.2 mg/dL (1.6-2.6); Potassium 4.5 mmol/L (3.5-5.1); Sodium 140 mmol/L (136-145)
[2023-08-14] MEDS: Piperacillin/Tazobactam 3.375 GM in Sodium Chloride 0.9% 100 ML IVPB SCH ×3 (05:56→21:29)
[2023-08-14] MEDS: Losartan 50 MG TAB PO SCH (08:16)
[2023-08-14] MEDS: Apixaban 5 MG TAB PO SCH ×2 (08:16→21:24)
[2023-08-14] MEDS: Fenofibrate Nanocrystallized 145 MG TAB PO SCH (08:16)
[2023-08-14] MEDS ORDERED: Thiamine 100 MG TAB PO SCH (09:00)
[2023-08-14] MEDS ORDERED: Lorazepam 0.5 MG TAB PO PRN (11:20)
[2023-08-15] MEDS: Piperacillin/Tazobactam 3.375 GM in Sodium Chloride 0.9% 100 ML IVPB SCH ×3 (05:13→21:41)
[2023-08-15] MEDS: Losartan 50 MG TAB PO SCH (08:03)
[2023-08-15] MEDS: Apixaban 5 MG TAB PO SCH ×2 (08:04→21:41)
[2023-08-15] MEDS: Fenofibrate Nanocrystallized 145 MG TAB PO SCH (08:04)
[2023-08-16] MEDS: Piperacillin/Tazobactam 3.375 GM in Sodium Chloride 0.9% 100 ML IVPB SCH ×2 (06:32→13:06)
[2023-08-16] MEDS ORDERED: Hydrochlorothiazide 25 MG TAB PO SCH (09:00)
[2023-08-16] MEDS: Apixaban 5 MG TAB PO SCH (10:44)
[2023-08-16] MEDS: Losartan 50 MG TAB PO SCH (10:44)
[2023-08-16] MEDS: Fenofibrate Nanocrystallized 145 MG TAB PO SCH (10:45)
[2023-08-16 16:56] VITALS: BP 156/87; TEMP 97.9
== END 2023-08-16 19:36 | disposition home health service (06) | DRG 638 ==
LOC: CSHERS 10:37 → CSHTELE 15:01
PROVIDERS: ADMIT Internal Medicine; ATTEND Internal Medicine
PROC: 02HV33Z Insertion of Infusion Device into Superior Vena Cava, Percutaneous Approach (ICD-10-PCS; principal; 2023-08-15)
PROC: B5181ZA Fluoroscopy of Superior Vena Cava using Low Osmolar Contrast, Guidance (ICD-10-PCS; 2023-08-15)
PROC: B548ZZA Ultrasonography of Superior Vena Cava, Guidance (ICD-10-PCS; 2023-08-15)
DX: E11.69 Type 2 diabetes mellitus with other specified complication (principal); L03.115 Cellulitis of right lower limb; M86.171 Other acute osteomyelitis, right ankle and foot; E11.628 Type 2 diabetes mellitus with other skin complications; E11.621 Type 2 diabetes mellitus with foot ulcer; L97.519 Non-pressure chronic ulcer of other part of right foot with unspecified severity; F10.10 Alcohol abuse, uncomplicated; E11.40 Type 2 diabetes mellitus with diabetic neuropathy, unspecified; I10 Essential (primary) hypertension; E78.5 Hyperlipidemia, unspecified; I48.0 Paroxysmal atrial fibrillation; Z79.01 Long term (current) use of anticoagulants; Z79.899 Other long term (current) drug therapy; Z79.82 Long term (current) use of aspirin; Z98.890 Other specified postprocedural states; Z82.49 Family history of ischemic heart disease and other diseases of the circulatory system
CPT/HCPCS: 36415; 36416; 36569; 80048; 80053; 80202; 81001; 83605; 83735; 84443; 85025; 85027; 85610; 86140; 87040; 93005; 93010; 96374; 97139; C1751; J1650; J1956; J2543; J3370; J3490; J7050

== ENCOUNTER 2024-01-31 11:15 | Outpatient (CLI) | payer OTHER, MEDICARE, BC | END 2024-01-31 11:16 | disposition home or self-care (01) | LOC: CSHWCC 11:15 | PROVIDERS: ATTEND Nurse Practitioner Family | DX: L89.893 Pressure ulcer of other site, stage 3 (principal); G90.09 Other idiopathic peripheral autonomic neuropathy; L97.512 Non-pressure chronic ulcer of other part of right foot with fat layer exposed | CPT/HCPCS: 11042 ==

== ENCOUNTER 2024-02-03 08:29 | Outpatient (CLI) | payer OTHER, MEDICARE, BC | END 2024-02-03 08:30 | disposition home or self-care (01) | LOC: CSHWCC 08:29 | PROVIDERS: ATTEND Nurse Practitioner Family | DX: L89.893 Pressure ulcer of other site, stage 3 (principal); L97.512 Non-pressure chronic ulcer of other part of right foot with fat layer exposed; G90.09 Other idiopathic peripheral autonomic neuropathy | CPT/HCPCS: 99211; G0463 ==

== ENCOUNTER 2024-02-14 13:25 | Outpatient (CLI) | payer OTHER, MEDICARE, BC | END 2024-02-14 13:26 | disposition home or self-care (01) | LOC: CSHWCC 13:25 | PROVIDERS: ATTEND Nurse Practitioner Family | DX: L89.893 Pressure ulcer of other site, stage 3 (principal); L97.512 Non-pressure chronic ulcer of other part of right foot with fat layer exposed; G90.09 Other idiopathic peripheral autonomic neuropathy | CPT/HCPCS: 11042 ==

== ENCOUNTER 2024-02-24 12:27 | Outpatient (CLI) | payer OTHER, MEDICARE, BC | END 2024-02-24 12:28 | disposition home or self-care (01) | LOC: CSHWCC 12:27 | PROVIDERS: ATTEND Nurse Practitioner Family | DX: L89.893 Pressure ulcer of other site, stage 3 (principal); G90.09 Other idiopathic peripheral autonomic neuropathy | CPT/HCPCS: 29445 ==

== ENCOUNTER 2024-03-02 09:13 | Outpatient (CLI) | payer OTHER, MEDICARE, BC | END 2024-03-02 09:14 | disposition home or self-care (01) | LOC: CSHWCC 09:13 | PROVIDERS: ATTEND Nurse Practitioner Family | DX: L89.893 Pressure ulcer of other site, stage 3 (principal); G90.09 Other idiopathic peripheral autonomic neuropathy | CPT/HCPCS: 11042 ==

== ENCOUNTER 2024-03-09 15:18 | Outpatient (CLI) | payer OTHER, MEDICARE, BC | END 2024-03-09 15:19 | disposition home or self-care (01) | LOC: CSHWCC 15:18 | PROVIDERS: ATTEND Nurse Practitioner Family | DX: L89.893 Pressure ulcer of other site, stage 3 (principal); G90.09 Other idiopathic peripheral autonomic neuropathy | CPT/HCPCS: 11042 ==

== ENCOUNTER 2024-03-16 11:24 | Outpatient (CLI) | payer OTHER, MEDICARE, BC | END 2024-03-16 11:25 | disposition home or self-care (01) | LOC: CSHWCC 11:24 | PROVIDERS: ATTEND Preventive Medicine Undersea and Hyperbaric Medicine | DX: L89.893 Pressure ulcer of other site, stage 3 (principal); G90.09 Other idiopathic peripheral autonomic neuropathy | CPT/HCPCS: 29445 ==

== ENCOUNTER 2024-03-23 11:34 | Outpatient (CLI) | payer OTHER, MEDICARE, BC | END 2024-03-23 11:35 | disposition home or self-care (01) | LOC: CSHWCC 11:34 | PROVIDERS: ATTEND Nurse Practitioner Family | DX: L89.893 Pressure ulcer of other site, stage 3 (principal); G90.09 Other idiopathic peripheral autonomic neuropathy | CPT/HCPCS: 11042 ==

== ENCOUNTER 2024-03-27 15:40 | Outpatient (CLI) | payer OTHER, MEDICARE, BC | END 2024-03-27 15:41 | disposition home or self-care (01) | LOC: CSHWCC 15:40 | PROVIDERS: ATTEND Nurse Practitioner Family | DX: L89.893 Pressure ulcer of other site, stage 3 (principal); G90.09 Other idiopathic peripheral autonomic neuropathy ==

== ENCOUNTER 2024-03-30 15:58 | Outpatient (CLI) | payer OTHER, MEDICARE, BC | END 2024-03-30 15:59 | disposition home or self-care (01) | LOC: CSHWCC 15:58 | PROVIDERS: ATTEND Nurse Practitioner Family | DX: L89.893 Pressure ulcer of other site, stage 3 (principal); G90.09 Other idiopathic peripheral autonomic neuropathy | CPT/HCPCS: 29445 ==

== ENCOUNTER 2024-04-04 15:25 | Outpatient (CLI) | payer OTHER, MEDICARE, BC | END 2024-04-04 15:26 | disposition home or self-care (01) | LOC: CSHWCC 15:25 | PROVIDERS: ATTEND Nurse Practitioner Family | DX: L89.893 Pressure ulcer of other site, stage 3 (principal); G90.09 Other idiopathic peripheral autonomic neuropathy | CPT/HCPCS: 29445 ==

== ENCOUNTER 2024-04-09 14:14 | Outpatient (CLI) | payer OTHER, MEDICARE, BC | END 2024-04-09 14:15 | disposition home or self-care (01) | LOC: CSHWCC 14:14 | PROVIDERS: ATTEND Nurse Practitioner Family | DX: L89.893 Pressure ulcer of other site, stage 3 (principal); G90.09 Other idiopathic peripheral autonomic neuropathy | CPT/HCPCS: 11042 ==

== ENCOUNTER 2024-04-17 14:23 | Outpatient (CLI) | payer OTHER, MEDICARE, BC | END 2024-04-17 14:24 | disposition home or self-care (01) | LOC: CSHWCC 14:23 | PROVIDERS: ATTEND Nurse Practitioner Family | DX: L89.893 Pressure ulcer of other site, stage 3 (principal); G90.09 Other idiopathic peripheral autonomic neuropathy | CPT/HCPCS: 11042 ==

== ENCOUNTER 2024-04-20 13:25 | Outpatient (CLI) | payer OTHER, MEDICARE, BC | END 2024-04-20 13:26 | disposition home or self-care (01) | LOC: CSHWCC 13:25 | PROVIDERS: ATTEND Nurse Practitioner Family | DX: L89.893 Pressure ulcer of other site, stage 3 (principal); G90.09 Other idiopathic peripheral autonomic neuropathy | CPT/HCPCS: 29445 ==

== ENCOUNTER 2024-06-21 11:29 | Outpatient (CLI) | payer OTHER, MEDICARE, BC | END 2024-06-21 11:30 | disposition home or self-care (01) | LOC: CSHWCC 11:29 | PROVIDERS: ATTEND Nurse Practitioner Family | DX: L89.893 Pressure ulcer of other site, stage 3 (principal); G90.09 Other idiopathic peripheral autonomic neuropathy | CPT/HCPCS: 99212; G0463 ==

== ENCOUNTER 2024-06-28 13:02 | Outpatient (CLI) | payer OTHER, MEDICARE, BC | END 2024-06-28 13:03 | disposition home or self-care (01) | LOC: CSHWCC 13:02 | PROVIDERS: ATTEND Nurse Practitioner Family | DX: Z09 Encounter for follow-up examination after completed treatment for conditions other than malignant neoplasm (principal); Z87.2 Personal history of diseases of the skin and subcutaneous tissue | CPT/HCPCS: 99212; G0463 ==

== ENCOUNTER 2024-07-05 15:46 | Outpatient (CLI) | payer OTHER, MEDICARE, BC | END 2024-07-05 15:47 | disposition home or self-care (01) | LOC: CSHWCC 15:46 | PROVIDERS: ATTEND Nurse Practitioner Family | DX: Z87.2 Personal history of diseases of the skin and subcutaneous tissue (principal) | CPT/HCPCS: 99212; G0463 ==

== ENCOUNTER 2024-07-26 11:03 | Outpatient (CLI) | payer OTHER, MEDICARE, BC | END 2024-07-26 11:04 | disposition home or self-care (01) | LOC: CSHWCC 11:03 | PROVIDERS: ATTEND Nurse Practitioner Family | DX: Z09 Encounter for follow-up examination after completed treatment for conditions other than malignant neoplasm (principal); Z87.2 Personal history of diseases of the skin and subcutaneous tissue | CPT/HCPCS: 99212; G0463 ==

== ENCOUNTER 2025-05-03 13:57 | Outpatient (CLI) | payer OTHER, MEDICARE, BC | END 2025-05-03 13:58 | disposition home or self-care (01) | LOC: CSHWCC 13:57 | PROVIDERS: ATTEND Nurse Practitioner Family | DX: L97.511 Non-pressure chronic ulcer of other part of right foot limited to breakdown of skin (principal); M21.6X1 Other acquired deformities of right foot; G90.09 Other idiopathic peripheral autonomic neuropathy; L03.818 Cellulitis of other sites | CPT/HCPCS: 99214; G0463 ==

== ENCOUNTER 2025-05-21 13:34 | Outpatient (CLI) | payer OTHER, MEDICARE, BC | END 2025-05-21 13:35 | disposition home or self-care (01) | LOC: CSHWCC 13:34 | PROVIDERS: ATTEND Nurse Practitioner Family | DX: T81.31XD Disruption of external operation (surgical) wound, not elsewhere classified, subsequent encounter (principal); L97.511 Non-pressure chronic ulcer of other part of right foot limited to breakdown of skin; G90.09 Other idiopathic peripheral autonomic neuropathy; M21.6X1 Other acquired deformities of right foot | CPT/HCPCS: 11042; 99212; G0463 ==

== ENCOUNTER 2025-05-29 11:22 | Outpatient (CLI) | payer OTHER, MEDICARE, BC | END 2025-05-29 11:23 | disposition home or self-care (01) | LOC: CSHWCC 11:22 | PROVIDERS: ATTEND Nurse Practitioner Family | DX: T81.31XD Disruption of external operation (surgical) wound, not elsewhere classified, subsequent encounter (principal); L97.511 Non-pressure chronic ulcer of other part of right foot limited to breakdown of skin; G90.09 Other idiopathic peripheral autonomic neuropathy; M21.6X1 Other acquired deformities of right foot | CPT/HCPCS: 97597; 99212; G0463 ==

== ENCOUNTER 2025-06-04 11:10 | Outpatient (CLI) | payer OTHER, MEDICARE, BC | END 2025-06-04 11:11 | disposition home or self-care (01) | LOC: CSHWCC 11:10 | PROVIDERS: ATTEND Nurse Practitioner Family | DX: T81.31XD Disruption of external operation (surgical) wound, not elsewhere classified, subsequent encounter (principal); L97.511 Non-pressure chronic ulcer of other part of right foot limited to breakdown of skin; G90.09 Other idiopathic peripheral autonomic neuropathy; M21.6X1 Other acquired deformities of right foot | CPT/HCPCS: 11042; 97597; 99213; G0463 ==

== ENCOUNTER 2025-06-11 11:03 | Outpatient (CLI) | payer OTHER, MEDICARE, BC | END 2025-06-11 11:04 | disposition home or self-care (01) | LOC: CSHWCC 11:03 | PROVIDERS: ATTEND Nurse Practitioner Family | DX: L89.893 Pressure ulcer of other site, stage 3 (principal); T81.31XD Disruption of external operation (surgical) wound, not elsewhere classified, subsequent encounter; L97.511 Non-pressure chronic ulcer of other part of right foot limited to breakdown of skin; G90.09 Other idiopathic peripheral autonomic neuropathy; M21.6X1 Other acquired deformities of right foot | CPT/HCPCS: 97597 ==

== ENCOUNTER 2025-06-18 11:02 | Outpatient (CLI) | payer OTHER, MEDICARE, BC | END 2025-06-18 11:03 | disposition home or self-care (01) | LOC: CSHWCC 11:02 | PROVIDERS: ATTEND Nurse Practitioner Family | DX: L97.511 Non-pressure chronic ulcer of other part of right foot limited to breakdown of skin (principal); G90.09 Other idiopathic peripheral autonomic neuropathy; M21.6X1 Other acquired deformities of right foot | CPT/HCPCS: 99213; G0463 ==

== ENCOUNTER 2025-09-10 08:04 | Outpatient (CLI) | payer BC, OTHER | END 2025-09-10 08:05 | disposition home or self-care (01) | LOC: CSHWCC 08:04 | PROVIDERS: ATTEND Nurse Practitioner Family | DX: E11.621 Type 2 diabetes mellitus with foot ulcer (principal); L97.522 Non-pressure chronic ulcer of other part of left foot with fat layer exposed; E11.40 Type 2 diabetes mellitus with diabetic neuropathy, unspecified ==